=== PATIENT | male | born 1990 | race African-American/Black ===

== ENCOUNTER 2023-02-13 11:07 | Emergency (ER) | payer BC, OTHER, SELFPAY ==
[2023-02-13] MEDS ORDERED: Boostrix 0.5 ML (Tdap) VIAL (>/=7 yrs of age) ONE (11:25)
[2023-02-13] MEDS ORDERED: Bacitracin 1 PK ONE (11:25)
== END 2023-02-13 11:36 | disposition home or self-care (01) ==
LOC: BURERS 11:07
DX: S01.01XA Laceration without foreign body of scalp, initial encounter (principal); F17.210 Nicotine dependence, cigarettes, uncomplicated; Y04.2XXA Assault by strike against or bumped into by another person, initial encounter; Z23 Encounter for immunization
CPT/HCPCS: 12001; 90471; 90715

== ENCOUNTER 2023-02-23 18:50 | Emergency (ER) | payer SELFPAY | END 2023-02-23 19:31 | disposition home or self-care (01) | LOC: BURERS 18:50 | DX: S01.01XD Laceration without foreign body of scalp, subsequent encounter (principal); F17.210 Nicotine dependence, cigarettes, uncomplicated ==